=== PATIENT | female | born 1965 | race Caucasian/White ===

== ENCOUNTER → 2017-05-10 | Outpatient (CLI) | payer OTHER, SELFPAY ==
--- NOTE | 2017-05-10 16:45 | REP ---
Digital screening bilateral mammography with CAD: Comparison mammography September 29, 2014, November 07, 2012, and November 16, 2008. Mammographic findings: Scattered fibroglandular elements are seen. Normal appearing lymph node is visible in the left axilla. No microcalcification or architectural distortion is seen. There is an oval-shaped 12 mm nodular neodensity in the superior and medial aspect of the right breast at approximately 1-2 o'clock which merits further evaluation. No other abnormality. Impression: BIRADS category zero incomplete breast imaging. Nodular neodensity projecting in the superior medial quadrant of the right breast. Diagnostic right breast mammography and focused right breast sonography recommended. This mammogram was interpreted with the aid of an FDA-approved computer-aided detection system. The patient states that she has not had a clinical breast exam in over a year. The patient letter being requested is M0 .
== END ==
LOC: M WHC 14:34
PROVIDERS: ATTEND Internal Medicine
DX: Z12.31 Encounter for screening mammogram for malignant neoplasm of breast (principal); R92.8 Other abnormal and inconclusive findings on diagnostic imaging of breast

== ENCOUNTER → 2017-05-18 | Outpatient (CLI) | payer OTHER, SELFPAY ==
--- NOTE | 2017-05-18 14:04 | REP ---
DIGITAL DIAGNOSTIC UNILATERAL RIGHT BREAST MAMMOGRAPHY WITH CAD AND FOCUSED RIGHT BREAST SONOGRAPHY: HISTORY: Screening mammography from May 10, 2017 was BIRADS category 0 because of a possible nodular neodensity projecting superiorly and medially in the right breast. Diagnostic imaging was recommended. FINDINGS: Magnified focal spot compression CC, true ML, and MLO views of the right breast were obtained. These confirm the presence of a relatively low density well-circumscribed 12 mm nodule in the superior and medial aspect of the right breast. No other mammographic findings. SONOGRAPHIC FINDINGS: The right breast is scanned through the superior and medial quadrant, 12-o'clock position to 3-o'clock position. At 3-o'clock position, there is a hypoechoic mass measuring 1.1 x 0.9 x 0.5 cm located 2.9 cm from the nipple. This is felt to correspond to the mammographic opacity. It contains some echogenic foci which could be calcifications. Its long axis is parallel to the skin. It is not a simple cyst. IMPRESSION: BIRADS category 4 suspicious right breast imaging. Nodular density at 3-o'clock position on ultrasound and mammography. Recommend ultrasound guided needle biopsy with marker clip placement and post marker clip placement mammography. BI-RADS/ACR category 4 mammogram. Suspicious abnormality - biopsy should be considered. Usually requires biopsy. This mammogram was interpreted with the aid of an FDA-approved computer-aided detection system. The patient states that she/he has not had a clinical breast exam in over a year. The patient letter being requested is M4 . Signed by Tirso Wayne MD 05/18/2017 03:02 P
== END ==
LOC: M RAD 12:45
PROVIDERS: ATTEND Internal Medicine
DX: R92.8 Other abnormal and inconclusive findings on diagnostic imaging of breast (principal)
CPT/HCPCS: 76642; G0206

== ENCOUNTER 2020-03-05 04:39 | Emergency (ER) | payer OTHER ==
[~2020-03-05] VITALS: Ht 165.1 cm; Wt 55.9 kg
[2020-03-05] MEDS ORDERED: CITA40TA4 (04:48)
[2020-03-05] MEDS ORDERED: HYDR25TAB (04:48)
[2020-03-05] MEDS ORDERED: SYNT88TA2 (04:48)
[2020-03-05] MEDS ORDERED: LISI-538 (04:48)
[2020-03-05] MEDS ORDERED: GI COCKTAIL 50ML BTL(HYOSCYAMINE/MAALOX/LIDOCAINE VISCOUS)(1:3:1) PO ONE (05:30)
[2020-03-05] MEDS ORDERED: KETOROLAC 30 MG/ML 1ML VIAL IV ONE (05:30)
[2020-03-05] MEDS ORDERED: NS 1,000 ML IV ONE (05:30)
[2020-03-05 05:52] LABS: BASO % 0.6 % (0.0-1.0); EOS # 0.2 10^3/uL (0.0-0.5); EOS % 3.1 % (0.0-3.0); HEMATOCRIT 34.4 % (36.0-47.0); HEMOGLOBIN 11.3 g/dl (12.0-15.5); LYMPH # 1.6 10^3/uL (1.5-5.0); LYMPH % 25.1 % (24.0-44.0); MEAN CORPUSCULAR HEMOGLOBIN 31.4 pg (27.0-33.0); MEAN CORPUSCULAR HGB CONC 32.8 g/dl (32.0-36.5); MEAN CORPUSCULAR VOLUME 95.6 fl (80.0-96.0); MONO # 0.5 10^3/uL (0.0-0.8); MONO % 7.1 % (0.0-5.0); NEUTROPHILS # 4.1 10^3/uL (1.5-8.5); NEUTROPHILS % 63.8 % (36.0-66.0); PLATELET COUNT, AUTOMATED 261 10^3/uL (150-450); WHITE BLOOD COUNT 6.5 10^3/uL (4.0-10.0)
[2020-03-05 05:59] VITALS: BP 177/84
[2020-03-05 06:14] LABS: ALBUMIN 3.3 GM/DL (3.2-5.2); ALT/SGPT 12 U/L (12-78); BILIRUBIN,DIRECT < 0.1 MG/DL (0.0-0.2); BILIRUBIN,TOTAL 0.5 MG/DL (0.2-1.0); LIPASE 91 U/L (73-393); TOTAL PROTEIN 6.5 GM/DL (6.4-8.2)
--- NOTE | 2020-03-05 06:33 | REPVR ---
PROCEDURE INFORMATION: Exam: US Abdomen, Limited; Right Upper Quadrant Exam date and time: 03/05/20 (5:38am) Age: 54 years old Clinical indication: Epigastric / RUQ pain TECHNIQUE: Imaging protocol: US abdomen. Real time ultrasound with image documentation. Limited examination focused on the right upper quadrant. COMPARISON: No relevant prior studies available FINDINGS: The liver is visually normal in size, with fatty infiltration. Stone (5-6 mm size) at the gallbladder neck. The gallbladder has normal wall thickness (2.6 mm). No pericholecystic fluid is appreciated. The CBD is mildly dilated (5.8 mm diameter). The pancreas is obscured by bowel gas. The right kidney measures 11.6 cm in length, with no hydronephrosis appreciated. No ascites is seen. IMPRESSION: No evidence of acute cholecystitis. A stone (5-6 mm size) noted at the gallbladder neck. As Normal gallbladder wall thickness. No pericholecystic fluid. No biliary obstruction. Electronically signed by: Candis Linares On 03/05/2020 06:33:00 AM
[2020-03-05] MEDS ORDERED: LEVS0.124 SL (06:43)
[2020-03-05] MEDS ORDERED: OXYCODONE/APAP 5MG/325MG(BULK FOR ED) 1 TABLET PO ONE (06:45)
== END 2020-03-05 07:01 | disposition home or self-care (01) ==
LOC: M ED 04:39
DX: K80.70 Calculus of gallbladder and bile duct without cholecystitis without obstruction (principal); I10 Essential (primary) hypertension; Z79.899 Other long term (current) drug therapy; Z88.0 Allergy status to penicillin
CPT/HCPCS: 76705; 80047; 80076; 83690; 85025; 93041; 96361; 96374; 99284; J1885

== ENCOUNTER → 2020-09-15 | Outpatient (CLI) | payer OTHER ==
[~2020-09-15] MED LIST: CITA20TA6 PO; CITA40TA4; HYDR25TAB; HYDR25TAB PO; LEVS0.124 SL; LISI-538; LISI-538 PO; SYNT88TA2; SYNT88TA2 PO
[2020-09-15 16:29] LABS: HEMATOCRIT 37.9 % (36.0-47.0); HEMOGLOBIN 12.2 g/dl (12.0-15.5); MEAN CORPUSCULAR HEMOGLOBIN 30.7 pg (27.0-33.0); MEAN CORPUSCULAR HGB CONC 32.2 g/dl (32.0-36.5); MEAN CORPUSCULAR VOLUME 95.2 fl (80.0-96.0); PLATELET COUNT, AUTOMATED 299 10^3/uL (150-450); RED BLOOD COUNT 3.98 10^6/uL (4.00-5.40); WHITE BLOOD COUNT 8.3 10^3/uL (4.0-10.0)
[2020-09-15 17:06] LABS: ALBUMIN 3.8 GM/DL (3.2-5.2); ALT/SGPT 12 U/L (12-78); BILIRUBIN,TOTAL 0.4 MG/DL (0.2-1.0); BLOOD UREA NITROGEN 15 MG/DL (7-18); CALCIUM LEVEL 9.5 MG/DL (8.5-10.1); CARBON DIOXIDE LEVEL 32 MEQ/L (21-32); CHLORIDE LEVEL 100 MEQ/L (98-107); CREATININE FOR GFR 0.82 MG/DL (0.55-1.30); GLOMERULAR FILTRATION RATE > 60.0 (>51); GLUCOSE, FASTING 90 MG/DL (70-100); LIPASE 93 U/L (73-393); POTASSIUM SERUM 3.4 MEQ/L (3.5-5.1); SODIUM LEVEL 136 MEQ/L (136-145); TOTAL PROTEIN 6.8 GM/DL (6.4-8.2)
== END ==
LOC: M LAB 15:20
PROVIDERS: ATTEND Surgery
DX: K80.20 Calculus of gallbladder without cholecystitis without obstruction (principal)

== ENCOUNTER → 2020-09-15 | Outpatient (CLI) | payer OTHER ==
[~2020-09-15] MED LIST changes: +HYDR-3490; +HYDR-3490 PO; -HYDR25TAB; -HYDR25TAB PO; -LISI-538; -LISI-538 PO; +LISI20TA33; +LISI20TA33 PO
--- NOTE | 2020-09-16 19:16 | ECGEPIP ---
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
== END ==
LOC: M EKG 15:25
PROVIDERS: ATTEND Anesthesiology
DX: Z01.810 Encounter for preprocedural cardiovascular examination (principal); I10 Essential (primary) hypertension; K08.20 Unspecified atrophy of edentulous alveolar ridge

== ENCOUNTER 2020-09-28 07:31 | Day surgery (SDC) | payer OTHER ==
[~2020-09-28] VITALS: Ht 165.1 cm; Wt 118.3 kg
[~2020-09-28 07:31] MED LIST changes: +LR 1,000 ML IV ONE; +LevoFLOXacin IV 500 MG in IV 1 EA IV ONE
[2020-09-28] MEDS ORDERED: LIDOCAINE 2% JELLY 5ML TUBE As Ordered ONE (08:06)
[2020-09-28] MEDS ORDERED: SUGAMMADEX SODIUM 500 MG/5 ML VIAL (BRIDION) As Ordered ONE (08:06)
[2020-09-28] MEDS ORDERED: propofoL 200 MG/20 ML VIAL As Ordered ONE (08:06)
[2020-09-28] MEDS ORDERED: ROCURONIUM BROMIDE 50 MG/5 ML VIAL As Ordered ONE (08:06)
[2020-09-28] MEDS ORDERED: ACETAMINOPHEN 1000MG 100ML IV BTL (OFIRMEV) (J0131 PER 10MG) As Ordered ONE (08:06)
[2020-09-28] MEDS ORDERED: KETOROLAC 60MG 2ML VIAL As Ordered ONE (08:06)
[2020-09-28] MEDS ORDERED: dexameTHASONE 4 MG/ML 1ML VIAL (J1100 PER 1MG) As Ordered ONE (08:06)
[2020-09-28] MEDS ORDERED: ONDANSETRON 4MG/2ML VIAL As Ordered ONE (08:06)
[2020-09-28] MEDS ORDERED: fentaNYL 100 MCG/2 ML INJECTION (J3010) As Ordered ONE (08:07)
[2020-09-28] MEDS ORDERED: MIDAZOLAM INJ 2MG/2ML VIAL (J2250 PER 1MG) As Ordered ONE (08:07)
[2020-09-28] MEDS ORDERED: LIDOCAINE 2% 100MG/5ML SDV (FOR ANES.) As Ordered ONE (08:09)
[2020-09-28] MEDS ORDERED: CONRAY-60 60% 50ML VIAL (Q9961) As Ordered ONE (09:11)
[2020-09-28] MEDS ORDERED: BUPIVACAINE/EPIN 0.25% 30 ML VIAL As Ordered ONE (09:11)
[2020-09-28] MEDS ORDERED: ONDANSETRON 4MG/2ML VIAL IV PRN (11:00)
[2020-09-28] MEDS ORDERED: METOCLOPRAMIDE INJ 10MG/2ML VIAL (J2765 PER 1) IV PRN (11:00)
[2020-09-28] MEDS ORDERED: fentaNYL 100 MCG/2 ML INJECTION (J3010) IV PRN (11:00)
[2020-09-28] MEDS ORDERED: LR 1,000 ML IV SCH (11:00)
[2020-09-28] MEDS ORDERED: NS 1,000 ML IV SCH (11:00)
[2020-09-28] MEDS ORDERED: oxyCODONE 5MG TAB PO PRN (11:00)
[2020-09-28] MEDS ORDERED: MEPERIDINE INJ 25 MG/ML VIAL (J2175) IV PRN (11:00)
[2020-09-28] MEDS ORDERED: NORCO, ANEXSIA 5/325MG TABLET (HYDROcodone/ACETAMINOPHEN) PO PRN (11:00)
[2020-09-28 12:13] VITALS: BP 132/77
--- NOTE | 2020-10-10 20:05 | RO ---
OPERATIVE NOTE DATE OF OPERATION: 09/28/2020 PREOPERATIVE DIAGNOSIS: Symptomatic gallstones. POSTOPERATIVE DIAGNOSIS: Symptomatic gallstones. PROCEDURE: Laparoscopic cholecystectomy. SURGEON: Lalo Dubose M.D. CORE INSERTER: ANESTHESIA: General endotracheal anesthesia. ESTIMATED BLOOD LOSS: Minimal. FLUIDS: Crystalloid. DESCRIPTION OF PROCEDURE: The patient was brought to the operating room and was given general anesthesia. After adequate anesthesia and preoperative antibiotics were given, the patient was prepped and draped in the usual sterile fashion. Next, a supraumbilical incision was made with a skin knife. Blunt dissection was carried down to fascia. The fascia was entered with a Veress needle insufflated to 15 mm of pressure. A dilating 10 mm trocar was placed at this point under direct visualization and epigastric and two lateral trocars were placed under direct visualization. Next, the gallbladder was grasped, retracted superiorly and the peritoneum was taken off the neck of the gallbladder laterally, then anteriorly and then off the medial aspect. Once this was mobilized quite nicely and a circumferential , I was able to see the neck of the gallbladder quite nicely, the cystic artery and the posterior aspect of the neck of the gallbladder and the cystic duct. A critical view of safety was obtained and the cystic artery was clipped proximally and distally and transected and the neck of the gallbladder was further able to be retracted laterally, showing us an even better window behind the neck of the gallbladder. The cystic duct was clipped proximally, distally and transected and the gallbladder was removed from the gallbladder bed. This was placed in an EndoCatch bag, brought out through the umbilicus. A zero Vicryl was used to close the fascia at the umbilicus and all incisions were closed with 4-0 Vicryl. Steri-Strips and a dry sterile dressing was applied. The patient was awakened, extubated, brought to the recovery room awake, alert, hemodynamically stable. Sponge and needle counts were correct x2.
== END 2020-09-28 12:19 | disposition home or self-care (01) ==
LOC: M SDC 07:31
PROVIDERS: ATTEND Surgery
DX: K80.10 Calculus of gallbladder with chronic cholecystitis without obstruction (principal); I10 Essential (primary) hypertension; E03.9 Hypothyroidism, unspecified; F32.81 Premenstrual dysphoric disorder; Z79.899 Other long term (current) drug therapy; Z88.0 Allergy status to penicillin
CPT/HCPCS: 47562; 88304; J0131; J1100; J1885; J1956; J2250; J2405; J3010